=== PATIENT | male | born 1955 | race Caucasian/White ===

== ENCOUNTER → 2019-09-04 | Emergency (ER) | payer MEDICAID, OTHER ==
[~2019-09-04] VITALS: Ht 167.6 cm; Wt 70.5 kg
[~2019-09-04] MED LIST: HYDR-3686 PO; MELA10TA PO
[2019-09-04 11:37] VITALS: BP 104/73
[2019-09-04] MEDS: LORazepam 1 MG tablet PO ONE ×2 (12:31→12:38)
== END | disposition home or self-care (01) ==
LOC: ER 11:36
DX: F41.9 Anxiety disorder, unspecified (principal); R56.9 Unspecified convulsions; Z79.899 Other long term (current) drug therapy
CPT/HCPCS: 99283